=== PATIENT | female | born 2000 ===

== ENCOUNTER 2023-01-10 19:10 | Emergency (ER) | payer MEDICAID ==
[2023-01-10] MEDS ORDERED: Acetaminophen/HYDROcodone 325-5 MG Tab PO ONE (19:11)
[2023-01-10] MEDS ORDERED: Alum Hydroxide/Mag Hydroxide 15 ML, Lidocaine 2% 15 ML PO ONE ×2 (19:37)
[2023-01-10] MEDS ORDERED: hydrOXYzine HCl 50 MG/ML SDV IM ONE (19:37)
[2023-01-10] MEDS ORDERED: Sodium Chloride 0.9% 10 ML Syringe FLUSH PRN (20:06)
[2023-01-10] MEDS ORDERED: Sodium Chloride 0.9% 1,000 ML IV SCH (20:15)
[2023-01-10 20:23] LABS: APPEARANCE,URINE CLEAR (CLEAR); BILIRUBIN,URINE NEGATIVE (NEGATIVE); COLOR,URINE YELLOW (YELLOW); GLUCOSE,URINE NORMAL (NORMAL); KETONES,URINE NEGATIVE (NEGATIVE); NITRITE,URINE NEGATIVE (NEGATIVE); OCCULT BLOOD,URINE NEGATIVE (NEGATIVE); PROTEIN,URINE NEGATIVE (NEGATIVE); UROBILINOGEN,URINE NORMAL (NEGATIVE)
[2023-01-10 20:24] LABS: BACTERIA,URINE FEW (NS); LEUKOCYTE ESTERASE,URINE NEGATIVE (NEGATIVE); RBC,URINE 0-5 (0-5); SQUAMOUS EPITHELIAL CELLS,UR OCCASIONAL (NS,R,O); WBC,URINE 0-5 (0-5)
[2023-01-10 20:25] LABS: BASOPHILS PERCENT AUTO 0.4 % (0.2-1.5); EOSINOPHILS ABSOLUTE AUTO 0.1 x10-3/uL (0.0-0.8); EOSINOPHILS PERCENT AUTO 0.8 % (0.6-8.1); HEMATOCRIT 41.2 % (34.2-48.2); HEMOGLOBIN 13.2 g/dL (11.4-15.5); LYMPHOCYTES ABSOLUTE AUTO 1.6 x10-3/uL (1.0-4.4); LYMPHOCYTES PERCENT AUTO 16.7 % (18.4-52.1); MEAN CORPUSCULAR HEMOGLOBIN 25.7 pg (23.9-33.9); MEAN CORPUSCULAR HGB CONC 32.1 g/dL (31.9-34.8); MEAN PLATELET VOLUME 8.3 fL (7.1-12.4); MONOCYTES ABSOLUTE AUTO 0.8 x10-3/uL (0.3-1.0); MONOCYTES PERCENT AUTO 8.2 % (4.4-15.7); NEUTROPHILS ABSOLUTE AUTO 7.2 x10-3/uL (1.5-6.3); NEUTROPHILS PERCENT AUTO 73.9 % (30.8-76.2); PLATELET COUNT,PLT 356 x10(3)uL (151-488); RED BLOOD CELL COUNT 5.14 x10(6)uL (3.60-5.20); RED CELL DISTRIBUTION WIDTH 16.3 % (12.3-16.5); WHITE BLOOD CELL COUNT,WBC 9.8 x10-3/uL (3.0-10.3)
[2023-01-10 20:26] LABS: BLOOD UREA NITROGEN,BUN 6 mg/dL (7-18); BUN/CREATININE RATIO 6.7 (9-20); CALCIUM 8.9 mg/dL (8.6-10.2); CARBON DIOXIDE,CO2 28 mmol/L (21-32); CHLORIDE,CL 104 mmol/L (100-110); CREATININE 0.9 mg/dL (0.55-1.02); EST CRCL DRUG DOSING (CG) 104.23 mL/min; ESTIMATED GFR 92 mL/min (>60); GLUCOSE RANDOM 99 mg/dL (80-116); POTASSIUM,K 3.6 mmol/L (3.5-5.3); SODIUM,NA 141 mmol/L (135-145)
[2023-01-10 20:32] LABS: A/G RATIO 0.8; ALANINE AMINOTRANSFERASE,ALT 35 U/L (12-36); ALBUMIN 3.5 g/dL (3.5-5.2); ALKALINE PHOSPHATASE 72 IU/L (56-112); AMYLASE 49 U/L (25-115); ASPARTATE AMNIOTRANSFERASE,AST 18 IU/L (5-25); BILIRUBIN TOTAL 0.3 mg/dL (0.1-1.3)
[2023-01-10] MEDS ORDERED: Iopamidol 755 Mg/ML 200 ML Bottle IV ONE (20:55)
[2023-01-10] MEDS ORDERED: Morphine 4 MG/ML VIAL IVPUSH ONE (21:00)
[2023-01-10] MEDS ORDERED: Prochlorperazine 10 MG/2 ML SDV IVPUSH ONE (21:00)
== END 2023-01-10 21:56 | disposition home or self-care (01) ==
LOC: FB.ED 19:10
DX: K80.20 Calculus of gallbladder without cholecystitis without obstruction (principal); Z88.0 Allergy status to penicillin
CPT/HCPCS: 36415; 74177; 80053; 81001; 81025; 82150; 83690; 85025; 96361; 96372; 96374; 96375; 99284; A9270; J0780; J2270; J3410; J7030; Q9967